=== PATIENT | male | born 1955 | race Caucasian/White ===

== ENCOUNTER 2017-03-17 11:07 | Emergency (ER) | payer MEDICARE, OTHER | END 2017-03-17 13:05 | disposition left against medical advice (07) | LOC: ER 11:07 | DX: J44.9 Chronic obstructive pulmonary disease, unspecified (principal); J85.2 Abscess of lung without pneumonia; I10 Essential (primary) hypertension; F17.210 Nicotine dependence, cigarettes, uncomplicated; Z79.899 Other long term (current) drug therapy | CPT/HCPCS: 36415; 96365 ==

== ENCOUNTER 2017-03-19 12:11 | Emergency (ER) | payer MEDICARE, OTHER | END 2017-03-19 15:40 | disposition short-term general hospital (02) | LOC: ER 12:11 | DX: J44.1 Chronic obstructive pulmonary disease with (acute) exacerbation (principal); J85.2 Abscess of lung without pneumonia; R11.0 Nausea; R53.1 Weakness; I10 Essential (primary) hypertension; F17.210 Nicotine dependence, cigarettes, uncomplicated; Z99.81 Dependence on supplemental oxygen; Z79.899 Other long term (current) drug therapy | CPT/HCPCS: 36415; 96365; 96367; 96375; J3370 ==

== ENCOUNTER 2017-03-26 15:15 | Inpatient (IN) | payer MEDICARE, OTHER ==
[~2017-03-26] VITALS: Ht 188 cm; Wt 62.6 kg
--- NOTE | 2017-04-02 04:40 | NUR ---
0430- REPORT RECIEVED FROM RUDDY ANDUJAR.
--- NOTE | 2017-04-10 13:26 | NUR ---
1315 PATIENT OFF FLOOR VIA WHEELCHAIR
--- NOTE | 2017-04-10 17:59 | NUR ---
PATIENT BACK TO FLOOR AT THIS TIME AMBULATING WITH HOSPITAL STAFF
[2017-04-11] MEDS ORDERED: IPRAT-ALBUT 0.5-3 ML NEB (13:19)
[2017-04-11] MEDS ORDERED: SYMBICORT 16010.2 GM IH (13:19)
[2017-04-11] MEDS ORDERED: ZYRTEC10 MG PO (13:20)
[2017-04-11] MEDS ORDERED: COLACE100 MG PO (13:20)
[2017-04-11] MEDS ORDERED: VENTOLIN HFA8 GM IH (13:20)
[2017-04-11] MEDS ORDERED: ISOSORBIDE MONO30 MG PO (13:22)
[2017-04-11] MEDS ORDERED: DOXYCYCLINE HY100 M2 PO (13:22)
[2017-04-11] MEDS ORDERED: OMEPRAZOLE20 MG PO (13:23)
[2017-04-11] MEDS ORDERED: LOPRESSOR50 MG PO (13:23)
[2017-04-11] MEDS ORDERED: ASPIRIN EC81 MG PO (13:36)
[2017-04-11] MEDS ORDERED: POLYETHYLENE GL17 GM PO (13:36)
== END 2017-04-11 14:07 | disposition home or self-care (01) | DRG 178 ==
LOC: SWI 15:15
PROVIDERS: ADMIT Internal Medicine
DX: J85.1 Abscess of lung with pneumonia (principal); Z68.1 Body mass index [BMI] 19.9 or less, adult; J44.0 Chronic obstructive pulmonary disease with (acute) lower respiratory infection; J96.10 Chronic respiratory failure, unspecified whether with hypoxia or hypercapnia; E46 Unspecified protein-calorie malnutrition; R63.0 Anorexia; Z99.81 Dependence on supplemental oxygen; I10 Essential (primary) hypertension; Z86.11 Personal history of tuberculosis; R60.0 Localized edema; K21.9 Gastro-esophageal reflux disease without esophagitis; Z79.899 Other long term (current) drug therapy; F17.210 Nicotine dependence, cigarettes, uncomplicated; R74.8 Abnormal levels of other serum enzymes
CPT/HCPCS: 92610; 92611; 97162-GP; 97165; J1335; J1650; J3370; J7050